=== PATIENT | female | born 1995 | race Caucasian/White ===

== ENCOUNTER → 2017-05-11 11:51 | Outpatient (CLI) | payer BC, SELFPAY ==
[2017-05-11 11:55] LABS: Adenovirus,PCR Not Detected (NotDetected); Bordetella Pertussis Not Detected (NotDetected); Chlamydophila Pneumoniae, PCR Not Detected (NotDetected); Coronavirus 229E Not Detected (NotDetected); Coronavirus NL63 Not Detected (NotDetected); Coronavirus OC43 Not Detected (NotDetected); Coronovirus HKU1,PCR Not Detected (NotDetected); Human Metapneumovirus Not Detected (NotDetected); Influenza A, PCR Not Detected (NotDetected); Influenza AH1, 2009 Not Detected (NotDetected); Influenza AH1, PCR Not Detected (NotDetected); Influenza AH3,PCR Not Detected (NotDetected); Influenza B, PCR Not Detected (NotDetected); Mycoplasma Pneumoniae, PCR Not Detected (NotDected); Parainfluenza 1, PCR Not Detected (NotDetected); Parainfluenza 2, PCR Not Detected (NotDetected); Parainfluenza 3, PCR Not Detected (NotDetected); Parainfluenza 4, PCR Not Detected (NotDetected); Respiratory Syncytial Virus Not Detected (NotDetected); Rhinovirus/Enterovirus Not Detected (NotDetected)
== END ==
PROVIDERS: PCP Family Medicine; Visit Provider Nurse Practitioner
DX: J06.9 Acute upper respiratory infection, unspecified (principal)
CPT/HCPCS: 87486; 87581; 87633; 87798

== ENCOUNTER 2020-05-17 12:36 | Emergency (ER) | payer BC, SELFPAY ==
[2020-05-17 13:09] VITALS: BP 141/87; PULSE 105; RESP 16; TEMP 37.3; O2SAT 99; BMI 26.5
--- NOTE | 2020-05-17 13:39 | HMH.EDUTC ---
[facility] Disposition Clinical Impression: Qualifiers: Weeks of gestation: less than 8 weeks Qualified Code(s): Z3A.01 - Less than 8 weeks gestation of Disposition: Home, Self-Care Condition on Discharge: Good Instructions: Diet Additional Instructions: Follow up with your primary care physician. Follow up with your financial services associate doctor. Take the promethazine (phenergran) for nausea. GO TO THE ER FOR ANY WORSENING SYMPTOMS OR CONCERNS Referrals: Jessica Reeves [Primary Care Provider] - Forms: Work/School Release Medical Decision Making - Medical Records Medical records reviewed: No: I reviewed the patient's medical records. - Jhonny Inquiry Pt receiving controlled substance: No Vital Signs: 05/17/20 13:09 05/17/20 14:34 Temperature 99.1 F 97.9 F Temperature Source Oral Tympanic Pulse Rate 102 H Pulse Rate [Right] 105 H Respiratory Rate 16 16 Blood Pressure 139/79 Blood Pressure [Right Arm] 141/87 H Blood Pressure Mean [Right Arm] 105 Blood Pressure Source [Right Arm] Automatic Cuff Blood Pressure Position Sitting Blood Pressure Position [Right Arm] Sitting 02 Sat by Pulse Oximetry 99 Oxygen Delivery Method Room Air - Lab Data Lab Results 05/17/20 13:09: Influenza Type A Ag Negative, Influenza Type B Ag Negative 05/17/20 13:09: [facility]st Clinic Positive 05/17/20 13:40: HCG, Quant 405 H [facility] HPI - General Stated complaint: Diarrhea,nausea,shaky Time Seen by Provider: 05/17/20 13:39 Mode of Arrival: Ambulatory Source of Information: Patient Limitations: No Limitations Description of Symptoms (Recalled from Triage Doc. by RN): pt states she took a test this am and it was positive. however she has had two periouds recently. April 07-Apr 11 and again Apr 22-. pt is here for diarhea, dizziness, nausea, and nasal congestion. HEENT Symptoms (Recalled from RN notes): No Resp Symptoms (Recalled from RN notes): No Skin Symptoms (Recalled from RN notes): No MS Symptoms (Recalled from RN notes): No Functional Status (Recalled from RN notes): na - History of Present Illness Provider Complaint: She states that she has been having nasal congestion, nausea and diarrhea for the past several days. She has also had a positive test for at home. She would like to have this confirmed with a blood test. - Related Data Previous Rx's Medication Instructions Recorded Ciprofloxacin HCl [Ciprofloxacin 500 mg PO BID 7 Days #14 tab 06/03/19 500mg Tab] Promethazine HCl [Phenergan 25mg 25 mg PO Q6H PRN 6 Days #15 tab 06/03/19 tab] metroNIDAZOLE [Flagyl 500mg 500 mg PO TID 7 Days #21 tab 06/03/19 Tablet] Allergies Allergy/AdvReac Type Severity Reaction Status Date / Time amoxicillin [AMOXICILLIN] Allergy Mild Verified 05/17/20 13:15 Penicillins [PENICILLINS] Allergy Mild Verified 05/17/20 13:15 - Worker's Comp Is this a Worker's Comp case?: No [facility] History - Hepatitis A Screen Drug use history?: No High risk sexual behaviors?: No History of sexually transmitted infection?: No Currently employed?: No Childcare worker?: No Do you have indoor plumbing?: Yes Do you have electricity?: Yes Attestation statement:: This patient has been screened for Hepatitis A risk factors. I have reviewed the patient's past medical history: Yes Laterality Cases: Bilateral: Tonsillectomy - Social History Smoking Status: Current every day smoker # Packs/Day (cigarettes): 1 Alcohol Intake: current Alcohol Intake Frequency:: a few times a month Occupational Status: employed ROS Obtained: Yes All systems reviewed & no additional complaints - Constitutional Constitutional: Denies chills, Denies fever(s) - Eyes Eyes: Denies eye discharge - ENT Ears, Nose, Mouth, and Throat: Denies dizziness, Denies otalgia, Denies sore throat - Cardiovascular Cardiovascular: Denies chest pain - Respiratory Respiratory: Denies ches
[2020-05-17 14:19] LABS: HCG,Quantitative 405 mIU/ml (0-5.42)
[2020-05-17 14:33] LABS: UTC Influenza A Antigen Negative (Negative); UTC Pregnancy Test, Urine Positive (Negative)
[2020-05-17 14:34] VITALS: BP 139/79; PULSE 102; RESP 16; TEMP 36.6
[2020-05-17 14:34] LABS: UTC Influenza B Antigen Negative (Negative)
== END 2020-05-17 14:43 | disposition home or self-care (01) ==
PROVIDERS: Emergency Provider Nurse Practitioner Family; PCP Family Medicine
DX: Z3A.01 Less than 8 weeks gestation of pregnancy (principal); R11.0 Nausea; R42 Dizziness and giddiness; R09.81 Nasal congestion; Z88.0 Allergy status to penicillin; F17.210 Nicotine dependence, cigarettes, uncomplicated
CPT/HCPCS: 81025; 84702; 87804; 99202; G0463; U0003

== ENCOUNTER → 2020-06-29 10:35 | Outpatient (CLI) | payer BC, SELFPAY ==
[2020-06-29 11:00] LABS: Basophils % 0.4 % (0.1-2.0); Eosinophils # 0.1 K/mm3 (0.0-0.4); Eosinophils % 0.8 % (0.1-12.0); Hematocrit 41.8 % (37.0-47.0); Hemoglobin 13.8 g/dL (12.2-16.2); Lymphocytes # 1.5 K/mm3 (0.7-4.5); Lymphocytes % 13.2 % (10-50); Mean Corpuscular HGB Conc 33.1 g/dL (31.8-35.4); Mean Corpuscular Hemoglobin 31.3 pg (27.0-31.2); Mean Corpuscular Volume 94.5 fl (81-99); Mean Platelet Volume 7.7 fl (7.4-10.4); Monocytes # 0.5 K/mm3 (0.1-1.0); Monocytes % 4.7 % (1.7-9.3); Neutrophils # 9.1 K/mm3 (1.8-7.8); Neutrophils % 80.9 % (37.0-80.0); Platelet Count 200 K/mm3 (142-424); Red Blood Count 4.42 M/mm3 (4.20-5.40); Red Cell Distribution Width 12.4 % (11.5-17.5); White Blood Count 11.3 K/mm3 (4.8-10.8)
[2020-06-30 08:16] LABS: HIV Screen 4th Generation wRfx Non Reactive (Non Reactive)
[2020-06-30 11:22] LABS: Hepatitis B Surface Antigen Negative (Negative); Hepatitis C Antibody <0.1 s/co ratio (0.0-0.9); Rubella Antibodies, IgG 1.02 index (Immune >0.99)
[2020-06-30 12:36] LABS: Rapid Plasma Reagin Ab Titer Non Reactive (NonRea<1:1)
== END ==
PROVIDERS: Visit Provider Nurse Practitioner Obstetrics & Gynecology
DX: Z34.90 Encounter for supervision of normal pregnancy, unspecified, unspecified trimester (principal)
CPT/HCPCS: 36415; 85025; 86592; 86703; 86762; 86850; 87340; 87380; G0432

== ENCOUNTER → 2020-07-02 13:20 | Outpatient (CLI) | payer BC, SELFPAY ==
--- NOTE | 2020-07-02 13:21 | US_ITS ---
PROCEDURE: US OB <= 14 WEEKS FETUS CLINICAL INDICATION: US OB before 14 wks for DATES COMPARISON: No exams were available for comparison FINDINGS: An intrauterine gestational sac is present with a pole with a crown-rump length of 4.25cm correlating to gestational age of 11weeks 1day. heart tones are present with an FHR of 160bpm. Yolk sac is noted. IMPRESSION: Live IUP with a crown-rump length measuring 11 weeks 1 day Estimated due date by Ultrasound is 01/20/2021 Dictated by: Chidi Mccauley MD 07/02/2020 16:39 Chidi Mccauley MD in [place] 07/02/2020 16:39
== END ==
PROVIDERS: PCP Family Medicine; Visit Provider Nurse Practitioner Obstetrics & Gynecology
DX: O26.841 Uterine size-date discrepancy, first trimester (principal); Z3A.10 10 weeks gestation of pregnancy
CPT/HCPCS: 76801

== ENCOUNTER 2020-07-13 11:02 | Emergency (ER) | payer BC, SELFPAY ==
[2020-07-13 11:11] VITALS: BP 153/86; PULSE 90; RESP 18; TEMP 37.2; O2SAT 100; BMI 26.6
--- NOTE | 2020-07-13 11:28 | HMH.EDUTC ---
[facility] Disposition Clinical Impression: Dental abscess, Jaw pain, Pain, dental Disposition: Home, Self-Care Condition on Discharge: Good Instructions: Tooth Abscess Additional Instructions: 1. Drink plenty of fluids. 2. Take tylenol or ibuprofen for pain or fever. 3. Take all the antibiotics as prescribed for the entire course. 4. You have to follow up with a dentist. Call and make sure you yourself an appointment. 5. Follow up with your regular doctor. 6. GO TO THE ER FOR ANY WORSENING OR LIFE THREATENING SYMPTOMS, SUCH FEVER, ETC Prescriptions: clindamycin HCL [Clindamycin HCl] 300 mg PO Q8H 10 Days #30 cap Transmission Status: Received by [facility] Referrals: Jessica Reeves [Primary Care Provider] - Time of Disposition: 11:38 Medical Decision Making - Medical Records Medical records reviewed: No: I reviewed the patient's medical records. - Jhonny Inquiry Pt receiving controlled substance: No Vital Signs: 07/13/20 11:11 07/13/20 11:39 Temperature 99 F 98 F Temperature Source Oral Pulse Rate 92 H Pulse Rate [Right] 90 Respiratory Rate 18 16 Blood Pressure 155/90 H Blood Pressure [Right Arm] 153/86 H Blood Pressure Mean [Right Arm] 108 02 Sat by Pulse Oximetry 100 - Lab Data Lab Results 07/13/20 13:09: Strep Scn Rapid Clinic Negative Orders (Tests/Meds): ORDERS Category Date Time Status Strep Screen Confirmation Stat Micro 07/13/20 13:09 Received [facility] HPI - General Stated complaint: face swollen, fever Time Seen by Provider: 07/13/20 11:30 Mode of Arrival: Ambulatory Source of Information: Patient Limitations: No Limitations Description of Symptoms (Recalled from Triage Doc. by RN): pt c/o swelling in face and throat and pain i her jaw. she states this all started sunday. her daughter had strep last week. HEENT Symptoms (Recalled from RN notes): Yes (swelling in throat and face) Resp Symptoms (Recalled from RN notes): No Skin Symptoms (Recalled from RN notes): No MS Symptoms (Recalled from RN notes): No Functional Status (Recalled from RN notes): na - History of Present Illness Provider Complaint: She has been having left sided dental pain and swelling for the past 1 week. She is . - Related Data Home Medications Medication Instructions Recorded Confirmed prenat.vits,maryana,[id number] 1 tab PO DAILY 06/29/20 06/29/20 Previous Rx's Medication Instructions Recorded clindamycin HCL [Clindamycin HCl] 300 mg PO Q8H 10 Days #30 cap 07/13/20 Allergies Allergy/AdvReac Type Severity Reaction Status Date / Time amoxicillin [AMOXICILLIN] Allergy Mild Verified 07/13/20 11:18 Penicillins [PENICILLINS] Allergy Mild Verified 07/13/20 11:18 - Worker's Comp Is this a Worker's Comp case?: No [facility] History - Hepatitis A Screen Drug use history?: No High risk sexual behaviors?: No History of sexually transmitted infection?: No Currently employed?: No Childcare worker?: No Do you have indoor plumbing?: Yes Do you have electricity?: Yes Attestation statement:: This patient has been screened for Hepatitis A risk factors. I have reviewed the patient's past medical history: Yes Laterality Cases: Bilateral: Tonsillectomy - Social History Smoking Status: Current every day smoker # Packs/Day (cigarettes): 1 Alcohol Intake: current Alcohol Intake Frequency:: a few times a month Substance Use Type: denies use Occupational Status: employed Family Hx:: Cancer, Hypertension ROS Obtained: Yes All systems reviewed & no additional complaints - Constitutional Constitutional: Denies chills, Denies fever(s), Reports poor appetite, Reports malaise - Eyes Eyes: Denies eye discharge - ENT Ears, Nose, Mouth, and Throat: Reports as per HPI - Cardiovascular Cardiovascular: Denies chest pain - Respiratory Respiratory: Denies chest congestion, Denies cough - Gastrointestinal Gastrointestingal: Denies: abdomina
[2020-07-13 11:39] VITALS: BP 155/90; PULSE 92; RESP 16; TEMP 36.6
[2020-07-13 13:19] LABS: UTC Strep Screen (Rapid) Negative (Negative)
== END 2020-07-13 11:42 | disposition home or self-care (01) ==
PROVIDERS: Emergency Provider Nurse Practitioner Family; PCP Family Medicine
DX: K04.7 Periapical abscess without sinus (principal); Z34.90 Encounter for supervision of normal pregnancy, unspecified, unspecified trimester; F17.210 Nicotine dependence, cigarettes, uncomplicated
CPT/HCPCS: 87880; 99202; G0463

== ENCOUNTER → 2020-09-08 10:13 | Outpatient (CLI) | payer BC, SELFPAY ==
--- NOTE | 2020-09-08 10:13 | US_ITS ---
PROCEDURE: US OB /MATERNAL DETAIL CLINICAL INDICATION: 20 weeks gestation COMPARISON: US US OB <= 14 WEEKS FETUS from 07/02/2020 FINDINGS: There is a single live IUP which is in cephalic presentation. heart and body motion is noted. The placenta is posterior in implantation and grade 1. No previa or abruption. Placental lakes noted . The cervix appears satisfactory. Closed and measuring 4 in length. Complete survey performed and was unremarkable on the submitted images as in PACS. No discrete anomalies identified on survey imaging by technologist. Active fetus. Three-vessel cord with satisfactory umbilical cord insertion. 4- chamber heart noted. Survey of brain & ventricles Unremarkable. Face and neck survey unremarkable. Diaphragm and chest views unremarkable. Abdomen: Both kidneys noted and unremarkable. Stomach noted and satisfactory. Spine: Survey of the spine satisfactory with no anomalies identified nor imaged. Both arms and legs noted. Amniotic Fluid: Adequate. Maternal adnexa: No significant findings. Measurements: Average ultrasound age 20weeks 5days. Gestational Age 20weeks 5days Estimated due date by ultrasound age 1001/21/2021. Estimated weight 371g BPD = 20weeks 5days OFD = 21weeks HC = 20weeks 1day AC = 20weeks 6days FL = 20weeks 6days Growth Percentile= 36% Heart Rate = 152bpm Cerebellum = 21weeks Humerus = 21weeks 1day HC/AC is 1.13 CI is 0.77 FL/BPD is 0.71 FL/AC is 0.22 IMPRESSION: Live IUP at 20 weeks 5 days in cephalic presentation. No obvious anomalies. Please see above for detail. Dictated by: Chidi Mccauley MD 09/08/2020 17:20 Chidi Mccauley MD in [place] 09/08/2020 17:20
== END ==
PROVIDERS: PCP Family Medicine; Visit Provider Nurse Practitioner Obstetrics & Gynecology
DX: Z34.90 Encounter for supervision of normal pregnancy, unspecified, unspecified trimester (principal); Z3A.20 20 weeks gestation of pregnancy
CPT/HCPCS: 76811

== ENCOUNTER → 2020-10-15 07:48 | Outpatient (CLI) | payer BC, SELFPAY ==
[2020-10-15 08:16] LABS: Glucose,Fasting 86 mg/dl (74-100)
[2020-10-15 10:06] LABS: Glucose 1 Hour 127 mg/dL (74-100)
== END ==
PROVIDERS: Visit Provider Nurse Practitioner Obstetrics & Gynecology
DX: Z34.90 Encounter for supervision of normal pregnancy, unspecified, unspecified trimester (principal)
CPT/HCPCS: 36415; 82951

== ENCOUNTER 2020-11-22 11:55 | Outpatient (CLI) | payer SELFPAY ==
[2020-11-22 12:43] VITALS: BMI 28.0
[2020-11-22 12:49] VITALS: BMI 28.0
[2020-11-22 13:22] LABS: Microscopic, Urine URINE MICROSCOPIC (MICROSCOPIC)
[2020-11-22 13:27] LABS: Appearance,Urine CLEAR (Clear); Bilirubin,Urine Negative (Negative); Blood, Urine Negative (Negative); Color,Urine YELLOW (Yellow); Glucose,Urine (UA) Negative (Negative); Ketones,Urine Negative (Negative); Leukocyte Esterase,Urine Negative (Negative); Nitrate,Urine Negative (Negative); Protein,Urine Negative (Negative); Specific Gravity, Urine <= 1.005 (1.005-1.030); Urobilinogen,Urine 0.2 EU/dl (0.2)
[2020-11-22 13:40] LABS: Amphetamine/Metha Screen,Urine Negative ng/ml (<1000)
[2020-11-22 13:41] LABS: Barbiturates Screen,Urine Negative ng/ml (<200); Benzodiazepines Screen,Urine Negative ng/ml (<200); Squamous Epithelial Cell,Urine Occasional #/hpf (0-5)
[2020-11-22 13:42] LABS: Cannabinoid Screen,Urine Negative ng/ml (<50); Cocaine Screen,Urine Negative ng/ml (<300)
[2020-11-22 13:43] LABS: Methadone Screen,Urine Negative ng/ml (<300)
[2020-11-22 13:44] LABS: Opiate Screen,Urine Negative ng/ml (<300); Phencyclidine Screen,Urine Negative ng/ml (<25)
[2020-11-22 14:10] VITALS: BP 125/77; PULSE 78; RESP 18; TEMP 36.7; O2SAT 97
== END 2020-11-22 14:15 | disposition home or self-care (01) ==
LOC: OBOUT 11:58 → OB 11:59
PROVIDERS: PCP Family Medicine; Visit Provider Nurse Practitioner Obstetrics & Gynecology
DX: O26.893 Other specified pregnancy related conditions, third trimester (principal); Z3A.31 31 weeks gestation of pregnancy; V89.2XXA Person injured in unspecified motor-vehicle accident, traffic, initial encounter
CPT/HCPCS: 59025; 80305; 81001; G0463

== ENCOUNTER 2020-12-10 12:25 | Outpatient (CLI) | payer BC, SELFPAY ==
[2020-12-10 12:53] VITALS: BMI 28.0
[2020-12-10 13:01] VITALS: BP 121/88; PULSE 100; RESP 16; TEMP 36.7; O2SAT 97; BMI 28.0
[2020-12-10 13:19] LABS: Benzodiazepines Screen,Urine Negative ng/ml (<200)
[2020-12-10 13:20] LABS: Amphetamine/Metha Screen,Urine Negative ng/ml (<1000); Barbiturates Screen,Urine Negative ng/ml (<200)
[2020-12-10 13:21] LABS: Cannabinoid Screen,Urine Negative ng/ml (<50)
[2020-12-10 13:22] LABS: Cocaine Screen,Urine Negative ng/ml (<300); Methadone Screen,Urine Negative ng/ml (<300)
[2020-12-10 13:23] LABS: Opiate Screen,Urine Negative ng/ml (<300)
[2020-12-10 13:24] LABS: Phencyclidine Screen,Urine Negative ng/ml (<25)
[2020-12-10 14:26] LABS: Microscopic, Urine URINE MICROSCOPIC (MICROSCOPIC)
[2020-12-10 14:35] LABS: Appearance,Urine CLEAR (Clear); Bilirubin,Urine Negative (Negative); Blood, Urine Negative (Negative); Color,Urine YELLOW (Yellow); Glucose,Urine (UA) Negative (Negative); Ketones,Urine Negative (Negative); Leukocyte Esterase,Urine TRACE (Negative); Nitrate,Urine Negative (Negative); Protein,Urine Negative (Negative); Urobilinogen,Urine 0.2 EU/dl (0.2)
[2020-12-10 15:05] LABS: Bacteria,Urine 1+ /lpf; RBC,Urine Occasional #/hpf (0-3); Squamous Epithelial Cell,Urine Occasional #/hpf (0-5)
== END 2020-12-10 15:06 | disposition home or self-care (01) ==
LOC: OB 14:59 → OBOUT 12-14 10:21
PROVIDERS: PCP Nurse Practitioner Obstetrics & Gynecology; Visit Provider Nurse Practitioner Obstetrics & Gynecology
DX: O47.03 False labor before 37 completed weeks of gestation, third trimester (principal); Z3A.34 34 weeks gestation of pregnancy
CPT/HCPCS: 59025; 80305; 81001; 96365; G0378; G0463

== ENCOUNTER → 2020-12-16 14:16 | Outpatient (CLI) | payer BC, SELFPAY | PROVIDERS: Visit Provider Nurse Practitioner Obstetrics & Gynecology | DX: Z34.90 Encounter for supervision of normal pregnancy, unspecified, unspecified trimester (principal) | CPT/HCPCS: 86403 ==

== ENCOUNTER → 2020-12-22 10:21 | Outpatient (CLI) | payer BC, SELFPAY ==
--- NOTE | 2020-12-22 10:22 | US_ITS ---
PROCEDURE: US OB BIOPHYSICAL PROFILE CLINICAL INDICATION: SGA-measuring smaller than dates TECHNIQUE: FINDINGS: The following parameters are obtained: Average ultrasound age is Average 34weeks 6days Estimated due date by ultrasound is 01/27/2021. Estimated weight is 2,556g. This is 26 percentile BPD: 34weeks 5days OFD: 34weeks 5days HC: 34 weeks 2 days AC: 35 weeks 2 days FL: 35 weeks days heart rate: 150bpm bpm. HC/AC: 0.98 Cephalic index: 0.79 FL/BPD: 0.79 FL/AC: 0.22 Amniotic fluid index: 10.94cm Qualitative AFV: 2 breathing movements: 2 Gross body movements: 2 Tone: 2 Biophysical profile score: 8 The cervix is closed measuring 3 cm. The fetus is in cephalic presentation. The placenta is posterior and fundal. The placenta is grade 1. IMPRESSION: Live IUP in cephalic presentation with an average ultrasound age of 34 weeks 6 days and an estimated weight of 2556 g which is 26 percentile. Biophysical profile 8 of 8. Normal amniotic fluid index of 11 cm Dictated by: Chidi Mccauley MD 12/22/2020 17:48 Chidi Mccauley MD in [place] 12/22/2020 17:48
== END ==
LOC: RAD 10:22
PROVIDERS: PCP Family Medicine; Visit Provider Nurse Practitioner Obstetrics & Gynecology
DX: O36.5990 Maternal care for other known or suspected poor fetal growth, unspecified trimester, not applicable or unspecified (principal)
CPT/HCPCS: 76816; 76819

== ENCOUNTER 2021-01-11 20:49 | Inpatient (IN) | payer BC, SELFPAY ==
[2021-01-11 18:31] VITALS: BMI 28.6
[2021-01-11 19:15] LABS: Microscopic, Urine URINE MICROSCOPIC (MICROSCOPIC)
[2021-01-11 19:17] LABS: Appearance,Urine CLEAR (Clear); Bilirubin,Urine Negative (Negative); Blood, Urine Negative (Negative); Color,Urine STRAW (Yellow); Glucose,Urine (UA) Negative (Negative); Ketones,Urine Negative (Negative); Leukocyte Esterase,Urine TRACE (Negative); Nitrate,Urine Negative (Negative); Protein,Urine Negative (Negative); Specific Gravity, Urine <= 1.005 (1.005-1.030); Urobilinogen,Urine 0.2 EU/dl (0.2)
[2021-01-11 19:29] LABS: Opiate Screen,Urine Negative ng/ml (<300); Phencyclidine Screen,Urine Negative ng/ml (<25)
[2021-01-11 19:37] LABS: Amphetamine/Metha Screen,Urine Negative ng/ml (<1000)
[2021-01-11 19:38] LABS: Barbiturates Screen,Urine Negative ng/ml (<200); Benzodiazepines Screen,Urine Negative ng/ml (<200)
[2021-01-11 19:39] LABS: Cannabinoid Screen,Urine Negative ng/ml (<50); Cocaine Screen,Urine Negative ng/ml (<300)
[2021-01-11 19:40] LABS: Methadone Screen,Urine Negative ng/ml (<300)
[2021-01-11 20:01] LABS: Bacteria,Urine 2+ /lpf
[2021-01-11 20:11] LABS: Coronavirus 19, PCR Not Detected (NotDetected); Influenza A, PCR Not Detected (NotDetected); Influenza B, PCR Not Detected (NotDetected)
[2021-01-11 20:26] VITALS: BP 131/82; PULSE 84; RESP 18; TEMP 36.8; O2SAT 97; BMI 28.6
[2021-01-11 20:26] LABS: Basophils # 0.1 K/mm3 (0-0.2); Basophils % 0.3 % (0.1-2.0); Eosinophils # 0.1 K/mm3 (0.0-0.4); Eosinophils % 0.6 % (0.1-12.0); Hematocrit 37.7 % (37.0-47.0); Hemoglobin 12.8 g/dL (12.2-16.2); Lymphocytes # 2.4 K/mm3 (0.7-4.5); Lymphocytes % 14.5 % (10-50); Mean Corpuscular HGB Conc 34.1 g/dL (31.8-35.4); Mean Corpuscular Hemoglobin 33.5 pg (27.0-31.2); Mean Corpuscular Volume 98.5 fl (81-99); Mean Platelet Volume 10.1 fl (7.4-10.4); Monocytes # 0.6 K/mm3 (0.1-1.0); Monocytes % 3.8 % (1.7-9.3); Neutrophils # 13.5 K/mm3 (1.8-7.8); Neutrophils % 80.8 % (37.0-80.0); Platelet Count 199 K/mm3 (142-424); Red Blood Count 3.83 M/mm3 (4.20-5.40); Red Cell Distribution Width 13.7 % (11.5-17.5); White Blood Count 16.8 K/mm3 (4.8-10.8)
[2021-01-11 20:27] LABS: MANUAL DIFFERENTIAL MANUAL DIFFERENTIAL (MANUAL DIFF)
[2021-01-11 20:47] LABS: Eosinophils % 2 % (0-3); Lymphocytes % 14 % (10-50); Monocytes % 4 % (2-9); Neutrophils % 80 % (42-76); Platelet Estimate Normal; RBC Morphology Normal; Total Cells Counted 100
--- NOTE | 2021-01-11 22:38 | HMH.HP ---
*Admission Date: 01/11/21 *Chief complaint: contractions *History of present illness: 25 yo @ 39 weeks presented with regular contractions No vaginal bleeding or leakage of fluid care [facility] with Dr. Stahl [facility] History I have reviewed the patient's past medical history: Yes Medical History: Reports:: Depression *Have you ever received a pneumonia vaccine?: No *Have you received a flu vaccine this season?: No Anesthesia experience/problems:: none Laterality Cases: Bilateral: Tonsillectomy Other Surgeries: No: Amputation: No Fractures: No - *Social History Smoking Status: Current every day smoker # Packs/Day (cigarettes): 1 Alcohol Intake: current Alcohol Intake Frequency:: a few times a month Substance Use Type: denies use *Occupational Status:: other *Travel in the last 8 weeks: None Family Hx:: Cancer, Hypertension : 2 Para: 1 Review of Systems - Review of Systems Review of systems:: pertinent systems reviewed and negative unless documented below - *Genitourinary Denies abnormal vaginal bleeding Meds Home Medications Medication Instructions Recorded Confirmed Type prenat.vits,maryana,[id number] 1 tab PO DAILY 06/29/20 01/12/21 History aspirin 81 mg chewable tablet 81 mg PO DAILY 10/06/20 01/12/21 History hydroxyzine pamoate 25 mg capsule 25 mg PO TID PRN 90 Days #90 cap 12/29/20 01/12/21 Rx Ferrous Sulfate 325 mg PO DAILY 01/12/21 01/12/21 History Fluoxetine HCl [Prozac] 10 mg PO DAILY 01/12/21 01/12/21 History Labetalol HCl 100 mg PO BID 01/12/21 01/12/21 History Allergies Allergy/AdvReac Type Severity Reaction Status Date / Time amoxicillin [AMOXICILLIN] Allergy Mild Verified 01/05/21 13:35 Penicillins [PENICILLINS] Allergy Mild Verified 01/05/21 13:35 Exam Vital signs and Labs for Last 24 Hours: Temp Pulse Resp BP Pulse Ox 98.4 F 61 20 112/71 99 01/13/21 08:05 01/13/21 08:05 01/13/21 08:05 01/13/21 08:05 01/13/21 08:05 Laboratory Results - last 24 hr 01/13/21 07:18: Hgb 10.2 L, Hct 30.5 L I & O for Last 24 hours: Intake & Output 01/11/21 01/12/21 01/13/21 01/14/21 11:59 11:59 11:59 11:59 Intake Total 3441 / 3441 Output Total 650 / 650 Balance 2791 / 2791 Weight 183 lb Microbiology Reports for the Last 24 Hours: Microbiology 01/11/21 18:55 Urine,Clean Catch Urine Culture - Preliminary NO GROWTH AFTER 24 HOURS - Constitutional no acute distress - *Routine HEENT Exam Head: Present: normocephalic Eye: Absent: conjunctival icterus ENT: Present: mucous membranes moist - *Routine Neck Exam Present: supple. Absent: lymphadenopathy - *Routine Respiratory Exam Present: CTA bilaterally - *Routine Cardiovascular Exam Present: RRR - *Routine Abdominal Exam Present: soft, normoactive bowel sounds. Absent: tenderness - *Routine Rectal Exam Rectal:: deferred - *Routine Genitalia Exam Genitalia:: normal female Comment:: cervix 1-2cm - *Routine Extremities Exam Absent: cyanosis, clubbing, edema - *Routine Skin Exam Present: warm. Absent: rash - *Routine Neurological Exam Present: alert, oriented X3 Assessment and Plan (1) 39 weeks gestation of Status: Acute Category: Medical Code(s): Z3A.39 - 39 weeks gestation of (2) Active labor at term Status: Acute Category: Medical - Assessment and plan all Dx Assessment and Plan for all problems:: Admission Active labor status reassuring Epidural at request
--- NOTE | 2021-01-12 08:11 | HMH.PHAINT ---
MEDICATION RECONCILIATION COMPLETE USING PHARMACY INFO AND PREVIOUS DISCHARGE PAPERWORK
--- NOTE | 2021-01-12 08:13 | P.PN_ITS ---
[facility] Anesthesia Checklist - Structural Data Admitted From: Inpatient Planned Operative Procedure/s: labor epidural Consent for Planned Operative Procedure(s) Verified: Yes - Airway Assessment C-Spine Mobility Assessed: Yes TMJ Mobility Assessed: Yes Dentition: Good Dentition - Neurological Assessment Level of Consciousness: Awake, Alert, Appropriate - Anesthesia Plan Anesthesia Risk discussed: Yes Anesthesia Plan: Verified ASA Class: II Anesthesia Type: Epidural [facility] History I have reviewed the patient's past medical history: Yes *Have you ever received a pneumonia vaccine?: No *Have you received a flu vaccine this season?: No Anesthesia experience/problems:: none Laterality Cases: Bilateral: Tonsillectomy Other Surgeries: No: Amputation: No Fractures: No - *Social History Smoking Status: Current every day smoker # Packs/Day (cigarettes): 1 Alcohol Intake: current Alcohol Intake Frequency:: a few times a month Substance Use Type: denies use *Occupational Status:: other *Travel in the last 8 weeks: None Family Hx:: Cancer, Hypertension Para: 1
--- NOTE | 2021-01-12 08:22 | P.PN_ITS ---
Internal Medicine - PN: Subj *Date: 01/12/21 *Time: 08:22 (This 25-year-old 2 para 1 AB 0 white female was admitted at approximately 1700 yesterday and early active labor. She was observed overnight has an epidural in situ. Intravenous Pitocin has been started. Exam at this point shows her cervix to be 3 cm dilated, 90% effaced, with the presenting vertex high. Plan is to continue augmentation in anticipation of a vaginal delivery.) Exam Vital signs and Labs for Last 24 Hours: Temp Pulse Resp BP Pulse Ox 98.3 F 84 18 131/82 97 01/11/21 20:26 01/11/21 20:26 01/11/21 20:26 01/11/21 20:26 01/11/21 20:26 Laboratory Results - last 24 hr 01/11/21 18:55: Urine Color Straw, Urine Appearance Clear, Urine pH 6.0, Ur Specific [place] <= 1.005, Urine Protein Negative, Urine Glucose (UA) Negative, Urine Ketones Negative, Urine Blood Negative, Urine Nitrate Negative, Urine Bilirubin Negative, Urine Urobilinogen 0.2, Ur Leukocyte Esterase Trace, Urine WBC 3-5, Ur Squamous Epith Cells 3-5, Urine Bacteria 2+ 01/11/21 18:55: Urine Opiates Screen Negative, Urine Methadone Screen Negative, Ur Barbituates Screen Negative, Ur Phencyclidine Scrn Negative, Ur Amphetamines Screen Negative, U Benzodiazepines Scrn Negative, Urine Cocaine Screen Negative, U Marijuana (THC) Screen Negative 01/11/21 19:38: WBC 16.8 H, RBC 3.83 L, Hgb 12.8, Hct 37.7, MCV 98.5, MCH 33.5 H , MCHC 34.1, RDW 13.7, Plt Count 199, MPV 10.1, Neut % (Auto) 80.8 H, Lymph % (Auto) 14.5, [place] % (Auto) 3.8, Eos % (Auto) 0.6, Baso % (Auto) 0.3, Neut # (Auto) 13.5 H, Lymph # (Auto) 2.4, [place] # (Auto) 0.6, Eos # (Auto) 0.1, Baso # (Auto) 0.1, Total Counted 100, Neutrophils % (Manual) 80 H, Lymphocytes % (Manual) 14, Monocytes % (Manual) 4, Eosinophils % (Manual) 2, Platelet Estimate Normal, RBC Morphology Normal 01/11/21 19:58: SARS-CoV-2 (PCR) Not detected, Influenza A Untype (PCR) Not detected, Influenza Type B (PCR) Not detected 01/11/21 20:04: Blood Type O Positive, Antibody Screen Negative I & O for Last 24 hours: Intake & Output 01/09/21 01/10/21 01/11/21 01/12/21 11:59 11:59 11:59 11:59 Weight 183 lb
--- NOTE | 2021-01-12 13:35 | HMH.ACPN2 ---
Internal Medicine - PN: Subj *Date: 01/12/21 *Time: 13:35 (Cervix is now 80% in 4 cm dilated the head is distended slightly but cervix is still posterior and the head is not yet engaged. Baby looks good on the monitor. Plan observe.) Exam Vital signs and Labs for Last 24 Hours: Temp Pulse Resp BP Pulse Ox 98.3 F 84 18 131/82 97 01/11/21 20:26 01/11/21 20:26 01/11/21 20:26 01/11/21 20:26 01/11/21 20:26 Laboratory Results - last 24 hr 01/11/21 18:55: Urine Color Straw, Urine Appearance Clear, Urine pH 6.0, Ur Specific [place] <= 1.005, Urine Protein Negative, Urine Glucose (UA) Negative, Urine Ketones Negative, Urine Blood Negative, Urine Nitrate Negative, Urine Bilirubin Negative, Urine Urobilinogen 0.2, Ur Leukocyte Esterase Trace, Urine WBC 3-5, Ur Squamous Epith Cells 3-5, Urine Bacteria 2+ 01/11/21 18:55: Urine Opiates Screen Negative, Urine Methadone Screen Negative, Ur Barbituates Screen Negative, Ur Phencyclidine Scrn Negative, Ur Amphetamines Screen Negative, U Benzodiazepines Scrn Negative, Urine Cocaine Screen Negative, U Marijuana (THC) Screen Negative 01/11/21 19:38: WBC 16.8 H, RBC 3.83 L, Hgb 12.8, Hct 37.7, MCV 98.5, MCH 33.5 H, MCHC 34.1, RDW 13.7, Plt Count 199, MPV 10.1, Neut % (Auto) 80.8 H, Lymph % (Auto) 14.5, [place] % (Auto) 3.8, Eos % (Auto) 0.6, Baso % (Auto) 0.3, Neut # (Auto) 13.5 H, Lymph # (Auto) 2.4, [place] # (Auto) 0.6, Eos # (Auto) 0.1, Baso # (Auto) 0.1, Total Counted 100, Neutrophils % (Manual) 80 H, Lymphocytes % (Manual) 14, Monocytes % (Manual) 4, Eosinophils % (Manual) 2, Platelet Estimate Normal, RBC Morphology Normal 01/11/21 19:58: SARS-CoV-2 (PCR) Not detected, Influenza A Untype (PCR) Not detected, Influenza Type B (PCR) Not detected 01/11/21 20:04: Blood Type O Positive, Antibody Screen Negative I & O for Last 24 hours: Intake & Output 01/10/21 01/11/21 01/12/21 01/13/21 11:59 11:59 11:59 11:59 Weight 183 lb
--- NOTE | 2021-01-12 16:58 | HMH.ACPN2 ---
Internal Medicine - PN: Subj *Date: 01/12/21 *Time: 16:58 (Spontaneous rupture of membranes occurred few minutes ago (clear fluid) cervix is now 5 cm dilated but the head remains high. An internal toco and an electrode have been placed.. Intravenous Pitocin continues.) Exam Vital signs and Labs for Last 24 Hours: Temp Pulse Resp BP Pulse Ox 98.3 F 84 18 131/82 97 01/11/21 20:26 01/11/21 20:26 01/11/21 20:26 01/11/21 20:26 01/11/21 20:26 Laboratory Results - last 24 hr 01/11/21 18:55: Urine Color Straw, Urine Appearance Clear, Urine pH 6.0, Ur Specific [place] <= 1.005, Urine Protein Negative, Urine Glucose (UA) Negative, Urine Ketones Negative, Urine Blood Negative, Urine Nitrate Negative, Urine Bilirubin Negative, Urine Urobilinogen 0.2, Ur Leukocyte Esterase Trace, Urine WBC 3-5, Ur Squamous Epith Cells 3-5, Urine Bacteria 2+ 01/11/21 18:55: Urine Opiates Screen Negative, Urine Methadone Screen Negative, Ur Barbituates Screen Negative, Ur Phencyclidine Scrn Negative, Ur Amphetamines Screen Negative, U Benzodiazepines Scrn Negative, Urine Cocaine Screen Negative, U Marijuana (THC) Screen Negative 01/11/21 19:38: WBC 16.8 H, RBC 3.83 L, Hgb 12.8, Hct 37.7, MCV 98.5, MCH 33.5 H, MCHC 34.1, RDW 13.7, Plt Count 199, MPV 10.1, Neut % (Auto) 80.8 H, Lymph % (Auto) 14.5, [place] % (Auto) 3.8, Eos % (Auto) 0.6, Baso % (Auto) 0.3, Neut # (Auto) 13.5 H, Lymph # (Auto) 2.4, [place] # (Auto) 0.6, Eos # (Auto) 0.1, Baso # (Auto) 0.1, Total Counted 100, Neutrophils % (Manual) 80 H, Lymphocytes % (Manual) 14, Monocytes % (Manual) 4, Eosinophils % (Manual) 2, Platelet Estimate Normal, RBC Morphology Normal 01/11/21 19:58: SARS-CoV-2 (PCR) Not detected, Influenza A Untype (PCR) Not detected, Influenza Type B (PCR) Not detected 01/11/21 20:04: Blood Type O Positive, Antibody Screen Negative I & O for Last 24 hours: Intake & Output 01/10/21 01/11/21 01/12/21 01/13/21 11:59 11:59 11:59 11:59 Weight 183 lb
--- NOTE | 2021-01-12 18:19 | P.PN_ITS ---
Internal Medicine - PN: Subj *Date: 01/12/21 *Time: 18:19 (Cervix now completely effaced, 6 cm, presenting vertex at -1 st ation. The head is coming forward. Anticipating vaginal delivery.) Exam Vital signs and Labs for Last 24 Hours: Temp Pulse Resp BP Pulse Ox 98.3 F 84 18 131/82 97 01/11/21 20:26 01/11/21 20:26 01/11/21 20:26 01/11/21 20:26 01/11/21 20:26 Laboratory Results - last 24 hr 01/11/21 18:55: Urine Color Straw, Urine Appearance Clear, Urine pH 6.0, Ur Specific [place] <= 1.005, Urine Protein Negative, Urine Glucose (UA) Negative, Urine Ketones Negative, Urine Blood Negative, Urine Nitrate Negative, Urine B ilirubin Negative, Urine Urobilinogen 0.2, Ur Leukocyte Esterase Trace, Urine WBC 3-5, Ur Squamous Epith Cells 3-5, Urine Bacteria 2+ 01/11/21 18:55: Urine Opiates Screen Negative, Urine Methadone Screen Negative, Ur Barbituates Screen Negative, Ur Phencyclidine Scrn Negative, Ur Amphetamines Screen Negative, U Benzodiazepines Scrn Negative, Urine Cocaine Screen Negative, U Marijuana (THC) Screen Negative 01/11/21 19:38: WBC 16.8 H, RBC 3.83 L, Hgb 12.8, Hct 37.7, MCV 98.5, MCH 33.5 H , MCHC 34.1, RDW 13.7, Plt Count 199, MPV 10.1, Neut % (Auto) 80.8 H, Lymph % (Auto) 14.5, [place] % (Auto) 3.8, Eos % (Auto) 0.6, Baso % (Auto) 0.3, Neut # (Auto) 13.5 H, Lymph # (Auto) 2.4, [place] # (Auto) 0.6, Eos # (Auto) 0.1, Baso # (Auto) 0.1, Total Counted 100, Neutrophils % (Manual) 80 H, Lymphocytes % (Manual) 14, Monocytes % (Manual) 4, Eosinophils % (Manual) 2, Platelet Estimate Normal, RBC Morphology Normal 01/11/21 19:58: SARS-CoV-2 (PCR) Not detected, Influenza A Untype (PCR) Not detected, Influenza Type B (PCR) Not detected 01/11/21 20:04: Blood Type O Positive, Antibody Screen Negative I & O for Last 24 hours: Intake & Output 01/10/21 01/11/21 01/12/21 01/13/21 11:59 11:59 11:59 11:59 Intake Total 3441 / 3441 Output Total 650 / 650 Balance 2791 / 2791 Weight 183 lb
--- NOTE | 2021-01-12 20:03 | HMH.DN ---
- Delivery Note Delivery Date:: 01/12/21 Delivery Time:: 19:48 Anesthesia Type: Epidural Was labor medically induced?: Yes Induction method: per pitocin protocol Gestational age (weeks): 39 delivered prior to 39 weeks?: No Gender: Female at 1 minute: 8 at 5 minutes: 9 Suction Catheter Type: Daniela AF:: clear Delivery Procedure:: This 25-year-old 2, now para 2, Ab0 white female was admitted yesterday in early active labor and had a long slow progression to completion after augmentation with intravenous Pitocin, under labor epidural. She delivered spontaneously, without an episiotomy. There was no nuchal cord, nor was there any meconium. The baby's nasal and oropharynx were bulb suction, and the baby cried spontaneously on the perineum, as was delivered. The cord was clamped and cut, 3 vessels were noted to be within the cord, and cord blood was obtained. The baby was handed into the arms of the attending RN, who assigned Apgars of 8 at 1 minute and 9 at 5 minutes to this 6 pound 5 ounce, 18 inch female infant, born at 1950. The placenta delivered spontaneously, intact, at 1950. The uterus was inspected and was felt to be clean, and was involuting well, with IV Pitocin running. There were no lacerations. The rectovaginal septum was intact at the close of the procedure. The sponge and needle counts correct. The estimated blood loss was 350 cc. The patient tolerated the procedure well, and was recovered in excellent condition. Her blood type is Rh+. Her rubella titer is immune. She plans to bottlefeed. Placental Delivery Description: Spontaneous (normal)
[2021-01-13 07:35] LABS: Hematocrit 30.5 % (37.0-47.0); Hemoglobin 10.2 g/dL (12.2-16.2)
[2021-01-13 08:05] VITALS: BP 112/71; PULSE 61; RESP 20; TEMP 36.9; O2SAT 99
--- NOTE | 2021-01-13 12:48 | HMH.ACPN2 ---
Internal Medicine - PN: Subj *Date: 01/13/21 *Time: 12:48 Interval history: PPD #1 no unusual complaints Tolerating regular diet ambulating and voiding without difficulty asymptomatic with acute blood loss anemia Exam Vital signs and Labs for Last 24 Hours: Temp Pulse Resp BP Pulse Ox 98.4 F 61 20 112/71 99 01/13/21 08:05 01/13/21 08:05 01/13/21 08:05 01/13/21 08:05 01/13/21 08:05 Laboratory Results - last 24 hr 01/13/21 07:18: Hgb 10.2 L, Hct 30.5 L I & O for Last 24 hours: Intake & Output 01/11/21 01/12/21 01/13/21 01/14/21 11:59 11:59 11:59 11:59 Intake Total 3441 / 3441 Output Total 650 / 650 Balance 2791 / 2791 Weight 183 lb Microbiology Reports for the Last 24 Hours: Microbiology 01/11/21 18:55 Urine,Clean Catch Urine Culture - Preliminary NO GROWTH AFTER 24 HOURS Narrative: CONSTITUTIONAL: no acute distress HEENT: mucous membranes moist PULMONARY: breathing unlabored without audible wheezes CV: no tachycardia or visible JVD; normal LE peripheral pulses ABD: soft, NT/ND, no guarding : fundus firm at/below umbilicus SKIN: no visible rash or lesions EXT: 1+ edema LEs NEURO: alert/oriented, no altered mental status PSYCH: appropriate mood and demeanor Assessment and Plan (1) 39 weeks gestation of Status: Acute Category: Medical Code(s): Z3A.39 - 39 weeks gestation of (2) Active labor at term Status: Acute Category: Medical (3) Vaginal delivery Status: Acute Category: Medical Code(s): O80 - Encounter for full-term uncomplicated delivery (4) Anemia due to acute blood loss Status: Acute Category: Medical Code(s): D62 - Acute posthemorrhagic anemia - Assessment and plan all Dx Assessment and Plan for all problems:: Routine care PNV with FeSO4 Anticipate discharge home tomorrow
[2021-01-13 15:19] VITALS: BP 116/65; PULSE 66; RESP 20; TEMP 36.8; O2SAT 100
[2021-01-14 08:00] VITALS: BP 124/66; PULSE 63; RESP 20; TEMP 36.8; O2SAT 98
--- NOTE | 2021-01-14 09:09 | HMH.DCSUM ---
General - General Admission date:: 01/11/21 Discharge date: 01/14/21 HPI HPI: 25 yo @ 39 weeks presented with regular contractions No vaginal bleeding or leakage of fluid care H with Dr. Stahl Hospital Course Hospital Course: Uncomplicated vaginal delivery course uneventful Discharged home on PPD #2 in stable condition Tolerating regular diet Ambulating and voiding without difficulty Asymptomatic with mild anemia; lochia appropriate Objective Vital signs: Temp Pulse Resp BP Pulse Ox 98.2 F 66 20 116/65 100 01/13/21 15:19 01/13/21 15:19 01/13/21 15:19 01/13/21 15:19 01/13/21 15:19 Narrative: CONSTITUTIONAL: no acute distress HEENT: mucous membranes moist PULMONARY: breathing unlabored without audible wheezes CV: no tachycardia or visible JVD; normal LE peripheral pulses ABD: soft, NT/ND, no guarding : fundus firm at/below umbilicus SKIN: no visible rash or lesions EXT: 1+ edema LEs NEURO: alert/oriented, no altered mental status PSYCH: appropriate mood and demeanor DS: Diagnosis - Discharge Diagnosis (1) 39 weeks gestation of Status: Acute (2) Active labor at term Status: Acute (3) Vaginal delivery Status: Acute (4) Anemia due to acute blood loss Status: Acute Discharge Plan - Patient Discharge Instructions ACTIVITY: Continue current activity DIET: regular diet Additional Instructions: NO HEAVY LIFTING NO STRENUOUS ACTIVITY NOTHING IN THE VAGINA FOR 6 WEEKS Patient Instructions: Depression, Hemorrhage, DI for Labor and Delivery, Vaginal , DI for Pre-eclampsia, [facility] Post Discharge Instructions, Preventing the Spread of Coronavirus Discharge Instructions - Follow up Plan Follow up with: Lucas Stahl MD [Primary Care Provider] - Disposition: Home, Self-Care Condition at discharge:: Stable Home Medications: Home Medications Medication Instructions Recorded Confirmed Type prenat.vits,maryana,oha-praz-ktrim 1 tab PO DAILY 06/29/20 01/12/21 History aspirin 81 mg chewable tablet 81 mg PO DAILY 10/06/20 01/12/21 History hydroxyzine pamoate 25 mg capsule 25 mg PO TID PRN 90 Days #90 cap 12/29/20 01/12/21 Rx Ferrous Sulfate 325 mg PO DAILY 01/12/21 01/12/21 History Fluoxetine HCl [Prozac] 10 mg PO DAILY 01/12/21 01/12/21 History Labetalol HCl 100 mg PO BID 01/12/21 01/12/21 History Prescriptions/Medication Reconciliation: New Acetaminophen [Acetaminophen 325mg tab] 650 mg PO Q4HP PRN tablet PRN Reason: Mild Pain Ibuprofen [Motrin 400mg tablet] 800 mg PO Q6HP PRN tablet PRN Reason: MILD-MODERATE PAIN Continued prenat.vits,maryana,gzj-iusa-pmyid 1 tab PO DAILY aspirin 81 mg chewable tablet 81 mg PO DAILY hydroxyzine pamoate 25 mg capsule 25 mg PO TID PRN 90 Days #90 cap PRN Reason: itching Ferrous Sulfate 325 mg PO DAILY Labetalol HCl 100 mg PO BID Fluoxetine HCl [Prozac] 10 mg PO DAILY - Problem Reconciliation Problems Reviewed?: Yes
== END 2021-01-14 11:35 | disposition home or self-care (01) | DRG 806 ==
LOC: OBOUT 20:51 → OB 20:52
PROVIDERS: Obstetrics & Gynecology; Admitting Provider Obstetrics & Gynecology; PCP Nurse Practitioner Obstetrics & Gynecology; Visit Provider Nurse Practitioner Obstetrics & Gynecology
DX: O99.344 Other mental disorders complicating childbirth (principal); D62 Acute posthemorrhagic anemia; Z37.0 Single live birth; O99.334 Smoking (tobacco) complicating childbirth; Z3A.39 39 weeks gestation of pregnancy; O90.81 Anemia of the puerperium
CPT/HCPCS: 59409; 36415; 59025; 80305; 81001; 85007; 85014; 85018; 85025; 86850; 87086; 94761; 96360; C1758; C9803; G0283; U0003; U0005

== ENCOUNTER → 2021-02-26 11:23 | Outpatient (CLI) | payer BC, SELFPAY ==
[2021-02-26 11:44] LABS: Basophils # 0.1 K/mm3 (0-0.2); Basophils % 1.2 % (0.1-2.0); Eosinophils # 0.3 K/mm3 (0.0-0.4); Eosinophils % 4.4 % (0.1-12.0); Hematocrit 43.1 % (37.0-47.0); Hemoglobin 14.4 g/dL (12.2-16.2); Lymphocytes # 2.2 K/mm3 (0.7-4.5); Lymphocytes % 30.2 % (10-50); Mean Corpuscular HGB Conc 33.4 g/dL (31.8-35.4); Mean Corpuscular Hemoglobin 32.8 pg (27.0-31.2); Mean Corpuscular Volume 98.2 fl (81-99); Mean Platelet Volume 8.5 fl (7.4-10.4); Monocytes # 0.5 K/mm3 (0.1-1.0); Monocytes % 6.4 % (1.7-9.3); Neutrophils # 4.3 K/mm3 (1.8-7.8); Neutrophils % 57.9 % (37.0-80.0); Platelet Count 280 K/mm3 (142-424); Red Blood Count 4.39 M/mm3 (4.20-5.40); Red Cell Distribution Width 12.7 % (11.5-17.5); White Blood Count 7.4 K/mm3 (4.8-10.8)
[2021-02-26 12:17] LABS: Chloride 106 mmol/L (98-107); Potassium 4.7 mmoL/L (3.5-5.1); Sodium 143 mmol/L (136-145)
[2021-02-26 12:20] LABS: Anion Gap 13.7 mEq/L (5-15); Blood Urea Nitrogen 13 mg/dl (7-17); Calcium 9.5 mg/dl (8.4-10.2); Carbon Dioxide 28 mmol/L (22.0-30.0); Estimated Glomerular Filt Rate 60 ml/min (>60); GFR (African American) 72 ML/MIN (>60); Glucose 65 mg/dl (74-100); HCG Qualitative, Serum Negative (Negative)
== END ==
PROVIDERS: Visit Provider Nurse Practitioner Obstetrics & Gynecology
DX: Z01.818 Encounter for other preprocedural examination (principal); Z11.52 Encounter for screening for COVID-19; Z30.09 Encounter for other general counseling and advice on contraception
CPT/HCPCS: 36415; 80048; 84703; 85025; C9803; U0003; U0005

== ENCOUNTER 2021-02-28 06:12 | Day surgery (SDC) | payer BC, SELFPAY ==
[2021-02-25 08:54] VITALS: BMI 25.9
[2021-02-28] VITALS (11 sets, daily range): BP systolic 108–136; BP diastolic 60–82; PULSE 61–79; RESP 14–18; TEMP 36.2–43; O2SAT 98–99
--- NOTE | 2021-02-28 06:54 | P.PN_ITS ---
[facility] Anesthesia Checklist - Patient Identification Patient Identification: Arm Band - Structural Data Admitted From: Home Planned Operative Procedure/s: Lap. salpingectomy Consent for Planned Operative Procedure(s) Verified: Yes - NPO Status Verified Time NPO: 00:00 - Additional verifications Anesthesia Reactions: No Hx Blood Transfusions: No Blood Transfusion Reaction: No - Airway Assessment C-Spine Mobility Assessed: Yes TMJ Mobility Assessed: Yes Dentition: Good Dentition - Neurological Assessment Level of Consciousness: Awake Hx Seizures: No Numbness or tingling in extremities: No - Anesthesia Plan Anesthesia Risk discussed: Yes Anesthesia Plan: Verified ASA Class: II Anesthesia Type: General [facility] History I have reviewed the patient's past medical history: Yes Medical History: Reports:: Depression, MRSA (leg) Denies:: Cancer, Diabetes Mellitus Type 1, Diabetes Mellitus Type 2, Internal Pacemaker, Seizures *Have you ever received a pneumonia vaccine?: No *Have you received a flu vaccine this season?: No Other Medical History: Denies: Blood Transfusion Reaction Anesthesia experience/problems:: None Laterality Cases: Bilateral: Tonsillectomy Other Surgeries: No: , Pacemaker Amputation: No Fractures: No - *Social History Last grade of school completed: High school graduate Smoking Status: Current every day smoker Tobacco Type: cigarettes # Packs/Day (cigarettes): 1 Alcohol Intake: former Alcohol Intake Frequency:: a few times a month Substance Use Type: denies use *Occupational Status:: unemployed Housing: house Household Members: family *Travel in the last 8 weeks: None - Psychiatric History Pschychiatric History:: Reports:: Depression Family Hx:: No significant family history
--- NOTE | 2021-02-28 08:15 | HMH.OPNOTE ---
Date of procedure: 02/28/21 Pre-op Diagnosis:: Desire for sterilization Post-op Diagnosis:: Desire for sterilization Procedure performed:: Laparoscopic bilateral salpingectomy Surgeon:: Lucas Stahl MD ENGRAVER FLATWARE:: Fortino Vicente Anesthesia: GETJanett Estimated blood loss (mL): 25 Clinical Note:: She is a 25-year-old lady who expressed desire for sterilization. The risks and benefits of surgery as well as the irreversibility of bilateral salpingectomy were discussed with the patient prior to surgery. Operative findings:: She had a normal-appearing anteverted uterus. The tubes and ovaries appeared normal. The pelvis appeared normal. The upper abdomen was normal. The appendix appeared normal. Operative note:: She was taken to the operating room where general anesthesia was found be adequate. She was prepped and draped in normal sterile fashion in the semilithotomy position. A weighted speculum was placed in the vagina and the anterior lip of the cervix was grasped with a tenaculum. I then inserted a Laura uterine manipulator into the cervical os. The balloon was then insufflated. I changed gloves and injected 10 cc of 0.5% ropivacaine around her umbilicus and made a small incision within the umbilicus. I inserted a Veress needle into the abdominal cavity. The peritoneal cavity was then insufflated with carbon dioxide gas to a pressure of 20 mmHg. I then inserted a 5 millimeter trocar under direct vision. I injected through and through the pubic hairline, made a small incision here and inserted an 8 mm trocar under direct vision. I identified the inferior epigastric artery on the left side, went lateral to these and injected through and through. I then placed a 5 mm trocar here under direct vision. The pelvis and upper abdomen were then inspected and the findings were as previously dictated. I grasped the right tube at the cornua and using harmonic scalpel on coagulation mode I cut through the tube. I then grasped the distal tube and using harmonic scalpel cut along the mesosalpinx. The tube was removed through 8 mm trocar site. This was similarly performed on the patient's left side. I then injected 30 cc of 0.5% ropivacaine into the pelvis. After assuring hemostasis the gas was let out of the abdomen and hemostasis was once again assured. The abdomen was then reinsufflated. The secondary trochars were removed under direct vision. The gas was let out her abdomen. The primary trocar was then removed. The 8 mm trocar site was closed deeply with 2-0 Vicryl suture followed by subcuticular 4-0 Monocryl suture. The 5 mm trocar sites were closed with subcuticular 4-0 Monocryl. Sterile dressings were applied. The patient tolerated the procedure well and was taken to the recovery room in excellent condition. All sponge instrument and needle counts were correct. The estimated blood loss was less than 25 cc. Condition: stable Disposition: PACU Specimens:: Bilateral fallopian tubes Complications:: None
--- NOTE | 2021-02-28 08:33 | P.PN_ITS ---
[facility] Anesthesia Record Part I Intake, IV Amount: 1,000 Estimated blood loss (mL): 25 Urine output (mL): 0 Blood Pressure: 136/81 SaO2: 98 Pulse Rate: 79 Respiratory Rate: 16 Temperature: 98.5 F Patient is:: Drowsy, Stable Stable to PACU at:: 08:15
--- NOTE | 2021-02-28 08:49 | SUR.PHASEI ---
0844- detailed report called to karl mejia in post op. 0846- pt left in stable condition in post op at this time.
--- NOTE | 2021-02-28 15:24 | P.PN_ITS ---
[facility] Anesthesia Record Part II Discharge Time: 08:45 Destination: home PACU nurse assessment reviewed?: Yes Patient Condition:: Good Anesthesia Complications:: None none Swallowing reflex intact?: Yes Cyanosis?: No Blood Pressure: 108/60 Pulse Rate: 69 Temperature: 97.2 F Mental Status: Alert & Oriented Pain level:: 0 Nausea and/or vomitting:: None Intake, IV Amount: 0
== END 2021-02-28 09:15 | disposition home or self-care (01) ==
LOC: OR 06:15
PROVIDERS: PCP Family Medicine; Visit Provider Nurse Practitioner Obstetrics & Gynecology
PROC: (CPT 58661; principal; 2021-02-28 07:30)
DX: Z30.2 Encounter for sterilization (principal); F32.A Depression, unspecified; Z72.0 Tobacco use; Z82.49 Family history of ischemic heart disease and other diseases of the circulatory system; Z80.9 Family history of malignant neoplasm, unspecified; Z79.899 Other long term (current) drug therapy; Z88.0 Allergy status to penicillin; Z88.1 Allergy status to other antibiotic agents
CPT/HCPCS: 58661; 96374; J2405; J2710

== ENCOUNTER → 2022-11-09 11:25 | Outpatient (CLI) | payer BC, SELFPAY ==
--- NOTE | 2022-11-09 11:29 | XR_ITS ---
FINAL REPORT CLINICAL HISTORY: left foot pain following traumatic injury bruising to lateral side of foot COMPARISON: None FINDINGS: LEFT FOOT: Three views of the left foot were obtained. There is no acute fracture or dislocation. The joint spaces are intact. There is no soft tissue abnormality. IMPRESSION: No acute bony abnormality. Reviewed, Interpreted and Dictated by Cirilo Watson III, MD Transcribed by Patience Warren Authenticated and [facility]
== END ==
PROVIDERS: PCP Nurse Practitioner; Visit Provider Nurse Practitioner
DX: M79.672 Pain in left foot (principal)
CPT/HCPCS: 73630

== ENCOUNTER → 2023-02-06 09:00 | Outpatient (CLI) | payer BC, SELFPAY ==
[2023-02-06 18:15] LABS: Basophils % 0.4 % (0.1-2.0); Eosinophils # 0.1 K/mm3 (0.0-0.4); Eosinophils % 0.7 % (0.1-12.0); Hematocrit 40.6 % (37.0-47.0); Hemoglobin 13.9 g/dL (12.2-16.2); Lymphocytes # 2.3 K/mm3 (0.7-4.5); Mean Corpuscular HGB Conc 34.2 g/dL (31.8-35.4); Mean Corpuscular Hemoglobin 31.4 pg (27.0-31.2); Mean Corpuscular Volume 91.7 fl (81-99); Mean Platelet Volume 9.7 fl (7.4-10.4); Monocytes # 0.4 K/mm3 (0.1-1.0); Monocytes % 5.2 % (1.7-9.3); Neutrophils # 5.6 K/mm3 (1.8-7.8); Neutrophils % 66.6 % (37.0-80.0); Platelet Count 204 K/mm3 (142-424); Red Blood Count 4.42 M/mm3 (4.20-5.40); White Blood Count 8.4 K/mm3 (4.8-10.8)
[2023-02-06 18:41] LABS: Alanine Aminotransferase 26 U/L (12-78); Albumin Level 4.3 g/dl (3.5-5.0); Albumin/Globulin Ratio 1.7 (1.1-1.8); Alkaline Phosphatase 71 U/L (38-126); Anion Gap 14.5 mEq/L (5-15); Aspartate Amino Transferase 37 U/L (14-36); Bilirubin,Total 0.5 mg/dl (0.2-1.3); Blood Urea Nitrogen 14 mg/dl (7-17); Carbon Dioxide 25 mmol/L (22.0-30.0); Chloride 104 mmol/L (98-107); Estimated Glomerular Filt Rate 66 ml/min (>60); GFR (African American) 79 ML/MIN (>60); Globulin 2.6 g/dL (1.3-3.2); Glucose 91 mg/dl (74-100); Potassium 4.5 mmoL/L (3.5-5.1); Sodium 139 mmol/L (136-145); Total Protein,Serum 6.9 g/dl (6.3-8.2)
[2023-02-06 18:56] LABS: 25-OH Vitamin D, Total 34.6 ng/mL (30-100)
[2023-02-06 19:09] LABS: Thyroid Stimulating Hormone 0.83 uIU/mL (0.465-4.68)
[2023-02-06 19:28] LABS: Vitamin B12 501 pg/mL (239-931)
== END ==
PROVIDERS: PCP Nurse Practitioner; Visit Provider Nurse Practitioner
DX: F41.8 Other specified anxiety disorders (principal); Z68.28 Body mass index [BMI] 28.0-28.9, adult
CPT/HCPCS: 80053; 82306; 82607; 84443; 85025

== ENCOUNTER 2023-09-02 01:52 | Emergency (ER) | payer OTHER, SELFPAY ==
--- NOTE | 2023-09-02 01:54 | PC.NURSE ---
Finger tourniquet applied to right pinky finger, lac kit and lidocaine at bedside with sutures.
[2023-09-02 01:55] VITALS: BP 122/84; PULSE 106; RESP 19; TEMP 36.6; O2SAT 96
--- NOTE | 2023-09-02 02:00 | ED_ITS ---
Discharge Plan Disposition Patient Disposition: Home, Self-Care Prescriptions Prescriptions: No Action bupropion HCl 150 mg tablet extended release 24 hr See Rx Instructions .ROUTE .COMPLEX Qty: 30 2RF Dose Instruction: Take 1 Tablet by mouth once daily. Rx Instructions: Take 1 Tablet by mouth once daily. desvenlafaxine succinate [Pristiq] 50 mg tablet extended release 24 hr 50 mg PO DAILY Qty: 30 2RF lorazepam 0.5 mg tablet 0.5 mg PO BID PRN (Reason: anxiety) Qty: 30 0RF Activity Restrictions/Add. Instructions Additional Instructions/Restrictions: At this time it was felt you are safe to be discharged home. If new or worsening symptoms please do not hesitate to return the emergency department. Please follow-up with your family doctor in 10 days for possible suture removal. Is okay to shower and wash her hands however do not submerge them in water. For optimal scar healing after the sutures are removal please use vitamin E lotion and sunblock as you are able. Clinical Impressions Clinical Impression: Arterial hemorrhage, Finger laceration Instructions Patient Instructions: DI for Laceration Repair Discharge ED Provider: Naldo Lobato General Adult HPI General Chief complaint: Wound/Laceration Stated complaint: laceration to hand Time Seen by Provider: 09/02/23 01:54 History of Present Illness HPI narrative: Patient is a 28-year-old female who presents emergency department for evaluation of trauma. She dropped a jar containing sand and attempted to scoop it up prior to her children picking up resulting in a injury to her hand which is unknown as she has largely covered in blood all over her extremities. No other history is able to be obtained at this time. Related Data Previous Rx's Medication Instructions Recorded bupropion HCl 150 mg 24 hr tablet, See Rx Instructions .Route 08/14/23 extended release .COMPLEX #30 tabs desvenlafaxine succinate 50 mg 50 mg PO DAILY #30 tabs 08/14/23 tablet,extended release 24 hr (Pristiq) lorazepam 0.5 mg tablet 0.5 mg PO BID PRN anxiety #30 tabs 08/14/23 Allergies Allergy/AdvReac Type Severity Reaction Status Date / Time amoxicillin [AMOXICILLIN] Allergy Mild Verified 08/14/23 15:11 Penicillins [PENICILLINS] Allergy Mild Verified 08/14/23 15:11 [facility] Disclaimer: The information contained in this section may have been updated after the patient was seen, as this information can be updated by other users. Medical History Thoughts of self harm Anxiety with depression Surgical History Hx of tubal ligation Hx of tonsillectomy Family History Other Alcoholism Cancer FHx: mental illness Hyperlipidemia Hypertension Social History Smoking Status: Unknown if ever smoked second hand exposure: No alcohol intake: former substance use type: denies use current occupational status: unemployed Travel in the last 8 weeks: None household members: family housing: house current occupational exposures/hazards: No caffeine: Yes ROS Obtained: Yes Systems reviewed as appropriate & no additional complaints except as documented Physical Exam General General appearance: alert Head Head exam: atraumatic and normocephalic Eye Eye exam: Present PERRL ENT ENT exam: Present mucous membranes moist Chest Chest inspection: Present normal inspection and symmetric chest wall rise Respiratory Respiratory exam: Present normal lung sounds bilaterally; Absent respiratory distress Cardiovascular Cardiovascular exam: Present regular rate and normal rhythm Abdominal Exam Abdominal exam: Present soft; Absent tenderness Extremities Exam Extremities exam: Present other (All 4 extremities covered in blood, patient is squeezing her hands closed. It appears that there is just an isolated wound to her right pinky with arterial hemorrhage.) Neurological Exam Neurological exam: Present alert Psychiatric Psychiatric exam: Present normal affect Skin Skin exam: Present warm and dry Medical Decision Making Jhonny Inquiry Pt receiving controlled substance: No Vital Signs: 09/02/23 01:55 09/02/23 03:04 Temperature 97.8 F 97.9 F Temperature Source Oral Oral Pulse Rate 92 H Pulse Rate [Right Brachial] 106 H Respiratory Rate 19 18 Blood Pressure 124/84 Blood Pressure [Right Arm] 122/84 Blood Pressure Mean [Right Arm] 96 Blood Pressure Source Automatic Cuff Blood Pressure Source [Right Arm] Automatic Cuff Blood Pressure Position Sitting Blood Pressure Position [Right Arm] Sitting 02 Sat by Pulse Oximetry 96 Oxygen Delivery Method Room Air Room Air Orders (Tests/Meds): ED MEDICATIONS Discontinued Medications Generic Name Dose Route Start Last Admin Trade Name Freq PRN Reason Stop Dose Admin Lidocaine/Epinephrine 10 ml 09/02/23 02:08 09/02/23 02:10 Lidocaine 1% W/Epi 1:100,000 20ml Vial SQ 09/02/23 02:09 10 ml ONCE ONE Administration Tetanus/Reduced Diphtheria/Acell Pertussis 0.5 ml 09/02/23 02:02 09/02/23 02:09 Tet/Diphth/Pert-Adult 0.5ml Syringe IM 09/02/23 02:03 0.5 ml .ONCE ONE Administration Medical Decision Narrative: In summary patient is a 28-year-old female past medical history described above who presents emergency department for evaluation of traumatic injury sustained from glass. Patient is covered in blood upon arrival. Tourniquets were katie ginally put up on the bilateral upper extremities in triage given unknown hemorrhage location. After cleaning up the patient appears she has isolated arterial hemorrhage to her right digital artery of her pinky. Last Tdap unknown which will be updated. Finger tourniquet applied and digital block was conducted, hemostasis achieved with tourniquet while primary repair was conducted. Patient is appropriate for discharge at this time and will follow-up on an outpatient basis for suture removal. Procedure: Procedure performed was right pinky digital artery hemorrhage control. Windlass combat application tourniquet was applied over the distal forearm, digital tourniquet was applied with hemorrhage control successful. Procedure: Procedure performed was laceration repair. Location was right volar pinky. Length was 1.5 cm. Hemorrhage control achieved with digital and windlass tourniquet, digital block performed with lidocaine 1% without epinephrine on the right pinky, 6 cc instilled with anesthesia achieved. Wound was repaired with 4-0 Prolene, 3 simple interrupted sutures were used, 1 horizontal mattress was used about the radial artery with good approximation. Skin glue placed over top of the wound. Tourniquet was let down. After 15 minutes reexamination shows continued hemostasis. Patient has collateral circulation as fingertip has capillary refill less than 2 seconds. Nonabsorbable dressing placed over the suture line and placed in finger splint. Patient tolerated the procedure well. There were no immediate complications. Critical Care Critical Care Time Critical Care Time: Yes Attestation: On 09/02/23, the high probability of a clinically significant, sudden or life threatening deterioration of the following system(s) required my full and direct attention, intervention and personal management. The time I documented below is in addition to time spent performing reported procedures but includes the following listed in this critical care notation. Total Time Total Critical Care Time: 30
[2023-09-02] MEDS: TET/DIPHTH/PERT-ADULT 0.5ML SYRINGE 0.5 ML IM (02:09)
[2023-09-02] MEDS: LIDOCAINE 1% W/EPI 1:100,000 20ML VIAL 10 ML SQ (02:10)
--- NOTE | 2023-09-02 02:16 | PC.NURSE ---
Pt gave verbal consent for TDAP, Gisel Hartmann RN at bedside to witness.
[2023-09-02 03:04] VITALS: BP 124/84; PULSE 92; RESP 18; TEMP 36.6; O2SAT 98
== END 2023-09-02 03:06 | disposition home or self-care (01) ==
PROVIDERS: Emergency Provider Emergency Medicine
DX: S61.216A Laceration without foreign body of right little finger without damage to nail, initial encounter (principal); W25.XXXA Contact with sharp glass, initial encounter; Z23 Encounter for immunization
CPT/HCPCS: 12001; 90471; 90715; 99283

== ENCOUNTER 2023-12-17 11:49 | Outpatient (CLI) | payer OTHER, SELFPAY ==
[2023-12-17 19:50] LABS: Basophils % 0.8 % (0.1-2.0); Eosinophils # 0.1 K/mm3 (0.0-0.4); Lymphocytes # 1.1 K/mm3 (0.7-4.5); Lymphocytes % 22.1 % (10-50); Mean Corpuscular HGB Conc 31.8 g/dL (31.8-35.4); Mean Corpuscular Hemoglobin 29.5 pg (27.0-31.2); Mean Corpuscular Volume 92.9 fl (81-99); Mean Platelet Volume 10.5 fl (7.4-10.4); Monocytes # 0.4 K/mm3 (0.1-1.0); Monocytes % 7.4 % (1.7-9.3); Neutrophils # 3.2 K/mm3 (1.8-7.8); Neutrophils % 67.8 % (37.0-80.0); Platelet Count 243 K/mm3 (142-424); Red Blood Count 4.42 M/mm3 (4.20-5.40); Red Cell Distribution Width 14.1 % (11.5-17.5); White Blood Count 4.7 K/mm3 (4.8-10.8)
[2023-12-17 20:24] LABS: Alanine Aminotransferase 24 U/L (12-78); Albumin Level 4.1 g/dl (3.5-5.0); Albumin/Globulin Ratio 1.6 (1.1-1.8); Alkaline Phosphatase 68 U/L (38-126); Anion Gap 7.5 mEq/L (5-15); Aspartate Amino Transferase 30 U/L (14-36); Bilirubin,Total 0.5 mg/dl (0.2-1.3); Blood Urea Nitrogen 11 mg/dl (7-17); Calcium 9.3 mg/dl (8.4-10.2); Carbon Dioxide 26 mmol/L (22.0-30.0); Chloride 110 mmol/L (98-107); Chol/HDL Ratio 2.8 (1-3.5); Cholesterol 170 mg/dl (140-200); Estimated Glomerular Filt Rate 74 ml/min (>60); GFR (African American) 89 ML/MIN (>60); Globulin 2.6 g/dL (1.3-3.2); Glucose 93 mg/dl (74-100); HDL Cholesterol 61 mg/dl (40-60); Potassium 4.5 mmoL/L (3.5-5.1); Sodium 139 mmol/L (136-145); Total Protein,Serum 6.7 g/dl (6.3-8.2); Triglycerides 89 mg/dl (30-150); VLDL Cholesterol 18 mg/dL (0-40)
[2023-12-17 20:40] LABS: Direct LDL Cholesterol 81.33 mg/dL (100-129)
[2023-12-17 20:41] LABS: Free T4 (Free Thyroxine) 0.89 ng/dl (0.78-2.19)
[2023-12-17 20:57] LABS: Thyroid Stimulating Hormone 0.98 uIU/mL (0.465-4.68)
[2023-12-17 21:16] LABS: Hemoglobin A1C 5.2 % (4.0-6.0)
== END 2023-12-17 23:59 | disposition home or self-care (01) ==
LOC: LAB.DROPOF 12-18 11:50
PROVIDERS: PCP Nurse Practitioner Acute Care; Visit Provider Nurse Practitioner Acute Care
DX: F41.1 Generalized anxiety disorder (principal); F33.9 Major depressive disorder, recurrent, unspecified
CPT/HCPCS: 80050; 80053; 80061; 83036; 84439; 84443; 85025; 87086

== ENCOUNTER 2024-12-11 12:00 | Outpatient (CLI) | payer OTHER, SELFPAY ==
[2024-12-11 19:22] LABS: Hematocrit 38.5 % (37.0-47.0); Hemoglobin 12.3 g/dL (12.2-16.2); Immature Granulocytes % 0 %; Mean Corpuscular HGB Conc 31.9 g/dL (31.8-35.4); Mean Corpuscular Hemoglobin 28.6 pg (27.0-31.2); Mean Corpuscular Volume 89.5 fl (81-99); Nucleated Red Blood Cells % 0 %; Platelet Count 221 K/mm3 (142-424); Red Blood Count 4.30 M/mm3 (4.20-5.40); Red Cell Distribution Width-SD 46.2 fL; White Blood Count 4.5 K/mm3 (4.8-10.8)
[2024-12-11 20:22] LABS: Alanine Aminotransferase 15 U/L (12-78); Albumin Level 4.2 g/dl (3.5-5.0); Albumin/Globulin Ratio 1.9 (1.1-1.8); Alkaline Phosphatase 48 U/L (38-126); Anion Gap 13.0 mEq/L (5-15); Aspartate Amino Transferase 23 U/L (14-36); Bilirubin,Total 0.4 mg/dl (0.2-1.3); Blood Urea Nitrogen 12 mg/dl (7-17); Calcium 9.5 mg/dl (8.4-10.2); Carbon Dioxide 24 mmol/L (22.0-30.0); Chloride 109 mmol/L (98-107); Cholesterol 149 mg/dl (140-200); Creatinine,Serum 1.50 mg/dl (0.52-1.04); Estimated Glomerular Filt Rate 41 ml/min (>60); GFR (African American) 49 ML/MIN (>60); Globulin 2.2 g/dL (1.3-3.2); Glucose 85 mg/dl (74-100); HDL Cholesterol 54 mg/dl (40-60); Potassium 5.0 mmoL/L (3.5-5.1); Sodium 141 mmol/L (136-145); Total Protein,Serum 6.4 g/dl (6.3-8.2); Triglycerides 67 mg/dl (30-150)
[2024-12-11 20:38] LABS: 25-OH Vitamin D, Total 47.4 ng/mL (30-100)
[2024-12-11 23:46] LABS: Thyroid Stimulating Hormone 1.20 uIU/mL (0.465-4.68)
[2024-12-12 03:09] LABS: Vitamin B12 662 pg/mL (239-931)
--- OUTSIDE RECORDS SUMMARY | 2024-12-15 09:17 | XMS_ITS | Clinical Summary ---
Author Organization [facility] Address [address] [place] [address] Phone Care Team Providers Care Windows System Admin Name Role Phone Evelin Shafer APRN Primary Care Provider Allergies Active Allergy Reactions Criticality Noted Date Comments Amoxicillin 12/19/2013 Throat Swelling Penicillins Shortness Of Breath,Swelling High Medications buPROPion (WELLBUTRIN XL) 150 mg Oral Tablet Sustained Release 24 hr Take 300 mg by mouth daily. 05/06/2024 Active desvenlafaxine succinate (PRISTIQ) 100 mg Oral Tablet Sustained Release 24 hr Take 100 mg by mouth daily. 05/06/2024 Active lamoTRIgine (LAMICTAL) 25 mg Oral Tablet Take 25 mg by mouth daily. 06/03/2024 Active naltrexone (REVIA) 50 mg Oral Tablet Take 50 mg by mouth daily. 06/03/2024 Active VIVITROL IM Suspension,Sust. Release Recon Inject 4.2 mL into the muscle every 28 days. 1 Each 11 06/09/2024 Active Active Problems Patient Care Coordination No te Formatting of this note migh t be different from the original. Jhonny ENTAS Controlled report completed 02/21/2017 Informed consent signed 02/21/2017 Problem Noted Date Diagnosed Date Uncomplicated alcohol dependence 06/05/2024 Assessment & Plan (06/05/2024 3:19 PM EST): Increased intake, frequency and dependency Meets criteria for vivitrol. Provides verbal consent. She will continue oral naltrexone and until we get her vivitrol injection in. Orders: COMPREHENSIVE METABOLIC PANEL; Future VITAMIN B12/ FOLIC ACID; Future VITAMIN D 25 HYDROXY; Future Anxiety and depression 06/05/2024 Assessment & Plan (06/05/2024 3:19 PM EST): Co-managed with Behavioral Health and advised to follow-up as instructed Bipolar II disorder 06/05/2024 Assessment & Plan (06/05/2024 3:19 PM EST): Co-managed with Behavioral Health and advised to follow-up as instructed History of abnormal cervical Pap smear 8 Overview (05/07/2017): Diagnosis 11/2016 EPITHELIAL CELL ABNORMALITIES (LSIL) Low Grade Squamous Intraepithelial Lesion (Encompassing HPV and GABRIELA 1). Diagnosis 01/2017 1) Ectocervix, biopsy: - Benign endocervical epithelium. 2) Ectocervical, biopsy at 1 o'clock: - Cervical intraepithelial neoplasia, grade 1 (GABRIELA-1). - Transformation zone is present. - P16 staining pattern supports the diagnosis. 3) Ectocervix, biopsy at 6 o'clock: - Cervical intraepithelial neoplasia, grade 1 (GABRIELA-1). - Transformation zone is present. Resolved Problems Problem Noted Date Diagnosed Date Resolved Date Normal delivery at term 01/20/201603/09 False labor 01/13/2016 01/16/2016 Gestational hypertension wit hout significant proteinuria in third trimester 01/09/2016 6 uterine contractions in second trimester, antepartum 10/28/2015 01/18/2016 ASCUS favoring benign 10/28/20152015 Choroid plexus cyst of fetus 10/21/2015 01/20/2016 Overview (11/19/2015): Resolved on 10/27 US Subchorionic hemorrhage in first trimester 06/18/2015 08/21/2015 Overview (06/18/2015): Per u/s at [facility] on 06/14/15 Tobacco abuse 05/26/2015 08/21/2015 Tobacco smoking affecting pr egnancy in first trimester 05/26/2015 03/20/2016 05/26/2015 01/20/2016 LSIL (low grade squamous int raepithelial lesion) on Pap smear 11/26/2013 03/20/2016 Overview (11/26/2013): 2013 Irregular menses 07/31/2011 06/05/2024 Contraceptive surveillance, unspecified 04/29/2010 08/21/2015 Acne 11/19/2009 06/05/2024 Immunizations Immunization Administration Dates Next Due DTaP 08/09/1998, 5,1993,1993,1993 HPV Quadrivalent 01/26/2009,09/28/2008, 9 Hepatitis B, Unspecified Formulation 05/05/1994, 1993,1993 HiB, Unspecified Formulation 08/04/1994, 1993,1993,1993 IPV 08/09/1998, 4,1993,1993 Influenza Patient Reported 03/23/2018 Influenza Vaccine Quadrivalent 05/07/2017,2015 Influenza Vaccine, Unspecifi ed Formulation 01/15/2019 MMR 08/09/1998,08/04/1994 PPD Test 12/12/2016,12/04/2016 Tdap 01/21/2016,11/04/2004 Surgical History Surgery Date Site/Laterality Comments TONSILLECTOMY 03/12/2017 Dr. AGATA Christian Medical History Medical History Date Comments Chicken pox Irregular uterine bleeding 2008 Gestational hypertension wit hout significant proteinuria in third trimester 01/09/2016 Tobacco abuse Depression 01/2016 depre ssion Anxiety and depression 06/05/2024 Family History Medical History Relation Name Comments Hypertension Father Jhoan Hendricks mouth cancer Father Jhoan Hendricks Blood Cancer Maternal Aunt BPDCN Heart Failure Maternal Grandfather Breast Cancer Maternal Grandmother Chetan Solisgburn Neurofibromatosis Mother dx. teens, no genetic testing, bone condition - brittle bones/osteoporosis, many tumors, worse during Breast Cancer Other 1 Cristela dx. ? Ovarian Cancer Other 1 Cristela dx ? Genetic Testing Other 4 NF negative Genetic Testing Other 6 NF negative Diabetes Paternal Aunt Giana Lung Cancer Paternal Grandfather Dany Hendricks + smoke Bleeding Prob Paternal Grandmother Nany Hendricks Diabetes Paternal Grandmother Nany Hendricks Heart Defect Paternal Grandmother Nany Hendricks Heart Failure Paternal Grandmother Nany Hendricks High Cholesterol Paternal Grandmother Nany Hendricks Migraines Paternal Grandmother Nany [place] Osteoarthritis Paternal Grandmother Nany [place] Skin Cancer Paternal Grandmother Nany Hendricks BCC on face, multiple Early Paternal Uncle 1 Tanvir from L schuyler cancer at age 37. Lung Cancer Paternal Uncle 1 Tavnir + smoke Asthma Paternal Uncle 2 Troy Melanoma Paternal Uncle 2 Troy on head Colon Cancer Neg Hx Hearing Loss Neg Hx Relation Name Status Comments Brother Alive Daughter 1 Alive jhoan on b ack Daughter 2 Alive Father Jhoan Hendricks (Age 53) Tongue/lip /thyroid smoker Half-Brother Alive Maternal Aunt Alive Maternal Grandfather (Age 70s) Maternal Grandmother Chetan Queen Mother Alive Nephew Alive Niece 1 Alive Niece 2 Alive Other 1 Cristela (Age 84) Other 2 Alive Other 3 Alive Other 4 Alive Other 5 Alive scoliosis Other 6 Alive Paternal Aunt Giana Alive breast brain a nd ovarian Paternal Grandfather Dany Hendricks (Age 60) Paternal Grandmother Nany Hendricks Alive skin ca ncer Paternal Uncle 1 Tanvir age 37 Paternal Uncle 2 Troy Alive Social History Tobacco Use Types Packs/Day Years Used Date Smoking Tobacco: Former Cigarettes 1 8.6 0 04/09/2014 - 11/07/2022 Smokeless Tobacco: Never Tobacco Cessation:Counseling Given: Not Answered Comments:socially Alcohol Use Standard Drinks/Week Comments Yes 0 (1 standard drink = 0.6 oz pur e alcohol) PHQ-2 Answer Date Recorded PHQ-2 Total Score 0 06/05/2024 Sexually Active Control Partners Comments Yes Condom, OCP Male Comments No Sex and Gender Information Value Date Recorded Sex Assigned at Not on file Legal Sex Female 1:55 PM EDT Gender Identity Not on file Sexual Orientation Not on file Obstetrics History Para Term AB IAB SAB Ectopic Multiple Livin g Live Births 1 1 1 0 1 2 Date Outcome GA Total Labor Labor//3rd Weight Sex Type Anes PTL Corine A1 A5 Name Clin 016 Term 38w 2d 0h 06m 0h 06m 7 lb 6 oz (3.345 kg) F Vag-S pont Epidur al N Livin g 7 9 GEORGE,T AYLOR BABY Loftu s-Smi , Marleni ponce MD Delivery Location:[facility] Last Filed Vital Signs Vital Sign Reading Time Taken Comments Blood Pressure 130/84 06/05/2024 2:15 PM EST Pulse 103 06/05/2024 2:15 PM EST Temperature 36.3 C (97.4 F) 06/05/2024 2:15 PM EST Respiratory Rate 18 06/05/2024 2:15 PM EST Oxygen Saturation 99% 06/05/2024 2:15 PM EST Inhaled Oxygen Concentration - - Weight 75.8 kg (167 lb) 06/05/2024 2:15 PM EST Height 170.2 cm (5' 7 ) 06/05/2024 2:15 PM EST Body Mass Index 26.16 06/05/2024 2:15 PM EST Plan of Treatment Health Maintenance Due Date Last Done Comments Pneumococcal Vaccine 0-49 (1 of 2 - PCV) 2012 Pap Smear 05/22/2021 05/22/2018, 11/08, 07/16/2015, Additional history exists Cervical Cancer Screening 2023 HPV/Pap Cotest 2023 COVID-19 Vaccine ( season) 2024 Influenza Vaccine (#1) 2024 9, 03/23/2018, 05/07/2017, Additional history exists Annual Wellness Exam 06/05/2025 06/05/2024 DTaP/TDaP/Td (9 - Td or Tdap) 09/01/2033 09/02/2023, 01/21/2016, 11/04/2004, Additional history exists Hepatitis B Vaccine Completed 05/05/1994, 1993, 1993 Meningococcal B Vaccine Aged Out No l onger eligible based on patient's age to complete this topic Goals Goal Patient Goal Type Associated Problems Recent Progress Patient-Stated? Author Blood Pressure < 140/90 Blood Pressure 130/84(2024 2:15 PM EST) No Jessica Julian MD Maintain a healthy diet, exercise regularly and maintain an ideal body weight General No Marge Tracey RMA Stay Tobacco Free Lifestyle No Marge Tracey RMA Procedures Procedure Name Priority Date/Time Associated Diagnosis Comments DATA WAREHOUSE ANALYST CYTOLOGY REQUEST (PAP ONLY) Routine 05/22/2018 3:15 PM EST Well female exam with routine gynecological exam from Last 3 Months or Most Recently Relevant to Health Maintenance Results * DATA WAREHOUSE ANALYST CYTOLOGY REQUEST (PAP ONLY) (05/22/2018 3:15 PM EST) CASE REPORT Gynecologic Cytology Report Case: [id number] Authorizing Provider: Ran Gamboa MD Collected: 05/22/2018 151 Ordering Location: [facility] Received: 05/22/2018 1515 First Screen: Madiha Brewster CT Rescreen: Jack Aldana CT Specimen: LIQUID-BASED PAP - CERVICAL/ENDOCERV ICAL, Cervix, Endocervical 05/23/2018 11:12 AM [facility] [facility] PAP FINAL DIAGNOSIS Negative for intraepithelial lesion or malignancy 05/23/2018 11:12 AM [facility] at 1112 EST MICROSCOPIC DESCRIPTION Microscopic examination is performed and the findings corroborate the diagnosis. 05/23/2018 11:12 AM [facility] [employer] [facility] PAP SMEAR ADEQUACY Satisfactory for evaluation 05/23/2018 11:12 AM [facility] [employer] [facility] ENDOCERVICAL T-ZONE Transformation zone present 05/23/2018 11:12 AM [facility] [employer] [facility] EMBEDDED IMAGES 9 11:12 AM [facility] [employer] [facility] PAP DISCLAIMER The Pap Smear is a screening test that aids in the detection of cervical cancer and cancer precursors. Both false positive and false negative results can occur. The test should be used at regular intervals, and positive results should be confirmed before definitive therapy. Processed using the [employer]in[employer] Automated cytology screening device ([employer]). 05/23/2018 11:12 AM EST [facility] [employer] [facility] Thin Prep ENDOCERVICAL STRUCTURE / Unknown 05/22/2018 3:15 PM EST 05/22/2018 3:15 PM EST us Ran Gamboa MD CYTOLOGY ORDERABLES Final Resu lt [facility] [address] [place] [address] from Last 3 Months or Most Recently Relevant to Health Maintenance Insurance CHOICE PLUS CHOICE PLUS Advance Directives For more information, please contact: [phone] * Full Code (Latest Code Status on File) Date Activated Date Inactivated Comments 01/20/2016 7:16 AM 01/22/2016 7:43 PM Care Teams Windows System Admin Relationship Specialty Start Date End Date Evelin Shafer APRN [address] [place] [address] PCP - General Nurse Practitioner-Family 06/05/24
== END 2024-12-11 23:59 ==
LOC: LAB.DROPOF 12-15 09:03
PROVIDERS: PCP Nurse Practitioner; Visit Provider Nurse Practitioner
DX: F33.9 Major depressive disorder, recurrent, unspecified (principal); F41.1 Generalized anxiety disorder; E66.3 Overweight; F10.21 Alcohol dependence, in remission; Z79.899 Other long term (current) drug therapy; Z11.59 Encounter for screening for other viral diseases; Z86.39 Personal history of other endocrine, nutritional and metabolic disease
CPT/HCPCS: 80053; 80061; 82306; 82607; 84443; 85025